=== PATIENT | female | born 1965 | race Two or more races ===

== ENCOUNTER 2023-05-15 08:01 | Outpatient (OUT) | payer OTHER, SELFPAY ==
[2023-05-15 09:20] LABS: TSH W/ REFLEX FT4 0.086 uIU/mL (0.358-3.740)
[2023-05-15 10:32] LABS: Free T4 1.35 ng/dL (0.76-1.46)
== END 2023-05-15 08:02 | disposition home or self-care (01) ==
LOC: LAB 08:01
PROVIDERS: PCP Student in an Organized Health Care Education/Training Program; Visit Provider Student in an Organized Health Care Education/Training Program
DX: E03.9 Hypothyroidism, unspecified (principal)
CPT/HCPCS: 36415; 84439; 84443